=== PATIENT | female | born 1945 | race Caucasian/White ===

== ENCOUNTER 2017-09-04 12:37 | Outpatient (CLI) | payer MEDICARE, OTHER ==
--- NOTE | 2017-10-02 10:22 | MMO ---
BILATERAL SCREENING MAMMOGRAMS: Date: 09/04/17 HISTORY: 71-year-old female patient presented for screening mammography. This patient's mammogram was interpreted with the assistance of computer-aided detection. COMPARISON: 05/05/14 obtained from [place], [place]. FINDINGS: Scattered fibroglandular densities are seen in each breast. There are a few scattered benign-appearin g calcifications in the right breast. There are stable nodular densities in the upper outer aspects o f each breast, probably related to intramammary lymph nodes. No new dominant mass or suspicious group ing of microcalcifications are seen in either breast. No areas of architectural distortion are seen. IMPRESSION: BIRADS 2: Benign Finding(s) Routine annual mammographic screening is recommended. POS: RAMON
== END 2017-09-04 12:38 | disposition home or self-care (01) ==
LOC: SCSMAMMO 12:37
PROVIDERS: ATTEND Family Medicine
DX: Z12.31 Encounter for screening mammogram for malignant neoplasm of breast (principal)
CPT/HCPCS: 77067

== ENCOUNTER 2018-11-01 10:02 | Outpatient (CLI) | payer MEDICARE ==
--- NOTE | 2018-11-01 13:32 | MMO ---
Bilateral MAMMO Bilat Screen DDI. CLINICAL HISTORY: Patient is 73 years old and is seen for screening. The patient has the following family history of breast cancer: paternal aunt, malignant (generic). The patient has no personal history of cancer. VIEWS: The views performed were: bilateral craniocaudal and bilateral mediolateral oblique. FILMS COMPARED: The present examination has been compared to prior imaging studies performed at [facility] on 09/04/2017, and at [facility] on 05/05/2014. This study has been interpreted with the assistance of computer-aided detection. MAMMOGRAM FINDINGS: There are scattered fibroglandular densities. There are no suspicious masses, calcifications or areas of architectural distortion. There are benign appearing calcifications in both breasts. There are no suspicious masses, suspicious calcifications, or new areas of architectural distortion. IMPRESSION: THERE IS NO MAMMOGRAPHIC EVIDENCE OF MALIGNANCY. A ROUTINE FOLLOW-UP MAMMOGRAM IN 1 YEAR IS RECOMMENDED. ACR BI-RADS Category 2 - Benign finding MAMMOGRAPHY NOTE: 1. A negative mammogram report should not delay a biopsy if a dominant of clinically suspicious mass is present. 2. Approximately 10% to 15% of breast cancers are not detected by mammography. 3. Adenosis and dense breasts may obscure an underlying neoplasm.
== END 2018-11-01 10:03 | disposition home or self-care (01) ==
LOC: SCSMAMMO 10:02
PROVIDERS: ATTEND Family Medicine
DX: Z12.31 Encounter for screening mammogram for malignant neoplasm of breast (principal); Z80.3 Family history of malignant neoplasm of breast
CPT/HCPCS: 77067

== ENCOUNTER 2020-05-25 15:04 | Inpatient (IN) | payer MEDICARE ==
[~2020-05-25 15:04] MED LIST: Iopamidol-370 76% 500 ML 1 ML ONE
--- NOTE | 2020-05-25 15:53 | RAD ---
Chest one view HISTORY: Dyspnea. COVID positive. FINDINGS: Cardiac silhouette and pulmonary vasculature are unremarkable. Mediastinum is midline. Subtle ill-defined areas of peripheral groundglass opacity project over each lung base. No evidence of pneumothorax. IMPRESSION : Subtle bilateral lower lobe groundglass infiltrates. Correlate for COVID pneumonitis.
[2020-05-25] MEDS ORDERED: Dexamethasone 4 mg/ml Vial ONE (15:54)
[2020-05-25 15:56] LABS: #Basophils 0.3 thou/uL (0.0-0.2); #Lymphocytes 1.8 thou/uL (1.20-3.40); #Monocytes 0.9 thou/uL (0.11-0.59); #Neutrophils 7.1 thou/uL (1.40-6.50); %Basophils 2.9 % (0.0-1.0); %Eosinophils 0.1 % (0.0-10.0); %Lymphocytes 17.9 % (21.0-51.0); %Monocytes 8.8 % (0.0-10.0); %Neutrophils 70.2 % (42.0-75.0); Hemoglobin 15.9 g/dL (12.0-16.0); Mean Corpuscular HGB CONC 33.4 g/dL (32.0-36.0); Mean Corpuscular Hemoglobin 30.6 pg (27.0-31.0); Mean Corpuscular Volume 91.7 fL (78.0-98.0); Mean Platelet Volume 7.6 fL (7.4-10.4); Platelet Count 315 thou/uL (130-400); RBC Distribution Width 11.8 % (11.5-14.5); Red Blood Cell (RBC) Count 5.19 mill/uL (4.20-5.40); White Blood Cell (WBC) Count 10.2 thou/uL (4.8-10.8)
[2020-05-25 16:16] LABS: ALT (SGPT) 21 U/L (8-55); AST (SGOT) 34 U/L (5-34); Albumin 3.6 g/dL (3.4-4.8); Alkaline Phosphatase 64 U/L (40-110); Anion Gap 15 mmol/L (10-20); BUN (Urea Nitrogen) 13 mg/dL (9.8-20.1); Bilirubin, Total 0.7 mg/dL (0.2-1.2); Calc. Creatinine Clearance 0 mL/min (70-130); Carbon Dioxide 26 mmol/L (23-31); Chloride 96 mmol/L (98-107); Globulin 3.3 g/dL (2.4-3.5); Glucose 160 mg/dL (83-110); Potassium 3.6 mmol/L (3.5-5.1); Protein, Total 6.9 g/dL (6.0-8.3); Sodium 133 mmol/L (136-145)
[2020-05-25] MEDS ORDERED: cefTRIAXone\\ROCEPHIN 2 GM VIAL ONE (16:40)
[2020-05-25] MEDS ORDERED: Azithromycin 500 MG VIAL ONE (16:40)
--- NOTE | 2020-05-25 17:23 | CT ---
CT angiogram chest with IV contrast and 3-D imaging HISTORY: Dyspnea. COVID positive. FINDINGS: There is good contrast opacification of the pulmonary arteries and thoracic aorta with norm al branching of the great vessels at the aortic arch. No pleural fluid or pneumothorax. Nonenlarged, nonspecific lymph nodes throughout the mediastinum. Is nonspecific 0.4 cm subpleural non calcified nodules present within the right upper lobe anteriorly. Scattered throughout each lung are prominent patchy predominantly peripheral areas of groundglass inf iltrate and interstitial thickening. Within the partially visualized upper abdomen, a normal spleen is not seen. A 1.0 cm oval nodule imme diately anterior to the left adrenal gland may represent a nonenlarged lymph node or a splenule. IMPRESSION : No evidence of pulmonary embolus. Bilateral infiltrates of COVID pneumonitis.
[2020-05-25 18:53] LABS: Lactic Acid 1.7 mmol/L (0.5-2.2)
[2020-05-25] MEDS ORDERED: Acetaminophen 325 MG TAB PO PRN (20:11)
[2020-05-25] MEDS ORDERED: Albuterol 200 PUFF (6.7GM INHALER) INH PRN (20:18)
--- NOTE | 2020-05-25 20:19 | PDOC.HHP ---
Hospitalist HPI - History of Present Illness Shortness of breath History of Present Illness: Patient is a 74-year-old female with a history of sarcoidosis diagnosed in 1993 but has not required any treatment. Patient was in her usual state of health until around May 14. At that time she started feeling some generalized malaise, low-grade fevers and fairly severe chills. She had poor appetite. She got tested 5 days ago and was positive. Since that time she is continue to have worsening symptoms. She denies any loss of taste. She does have fairly significant watery diarrhea without abdominal cramping she has a lot of sinus congestion drainage and occasional bloody mucus. She presented today because of worsening shortness of breath. She had a family member bring her a pulse oximeter and her levels were at 85%. She reports she does actually feel better since getting started on the oxygen. ED Course: In the emergency department the patient received 2 L of IV fluids, 10 mg of dexamethasone, 2 g of Rocephin and azithromycin. Hospitalist ROS - Review of Systems Constitutional: reports: fever, chills, malaise Respiratory: reports: cough, shortness of breath, SOB with excertion. denies: hemoptysis Cardiovascular: denies: chest pain, palpitations Gastrointestinal: reports: diarrhea. denies: nausea, vomiting, abdominal pain, constipation All other systems reviewed; all pertinent +/- noted in HPI/Subj - Medication Medications: None Hospitalist History - Past Medical History Source: patient Cardiac: reports: no pertinent history Pulmonary: reports: Other (Diagnosed in 1993 sarcoidosis. 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 Gastrointestinal: reports: no pertinent history Heme/Onc: reports: Other (Left lower extremity DVT which she relates to driving and sedentary work.) Hepatobiliary: reports: no pertinent history Psych: reports: no pertinent history Musculoskeletal: reports: no pertinent history Rheumatologic: reports: Other (Rheumatic fever as a child) Infectious Disease: reports: no pertinent history ENT: reports: no pertinent history Renal/: reports: no pertinent history Endocrine: reports: no pertinent history Dermatology: reports: no pertinent history - Past Surgical History Past Surgical History: reports: Appendectomy, Hysterectomy, Tonsillectomy Other Surgical History: Patient reports that she had a small bowel obstruction and required surgical intervention. During that surgery they also removed her appendix. 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 - Family History Family History: reports: cancer (Brother with cancer, father had cancer.), cardiac disorder (Mother had coronary artery disease with a CABG and CHF. Brother also had coronary bypass) - Social History Smoking Status: Never smoker Alcohol: reports: None Drugs: reports: none Living Situation: Alone - Exam General Appearance: NAD, awake alert General - other findings: Morbidly obese ENT: normocephalic atraumatic Neck: supple, symmetric, no JVD, no thyromegaly, no lymphadenopathy, no carotid bruit Heart: RRR, no murmur, no gallops, no rubs, normal peripheral pulses Respiratory: tachypneic Respiratory - other findings: Fairly severe rales and rhonchi at both bases. Gastrointestinal: soft, non-tender, non-distended, normal bowel sounds, no palpable masses, no hepatomegaly, no splenomegaly, no bruit Extremities: no cyanosis, no clubbing, no edema Skin: normal turgor, no lesions, no rashes Neurological: no focal deficits Musculoskeletal: normal tone, normal strength Psychiatric: normal affect, normal behavior, A&O x 3 Hospitalist Results - Labs Result Diagrams: 05/25/20 15:43 05/25/20 15:43 Lab results: WBC 10.2 thou/uL (4.8-10.8) 05/25/20 15:43 Hgb 15.9 g/dL (12.0-16.0) 05/25/20 15:43 Hct 47.6 % (36.0-47.0) H 05/25/20 15:43 MCV 91.7 fL (78.0-98.0) 05/25/20 15:43 Plt Count 315 thou/uL (130-400) 05/25/20 15:43 Neutrophils % 70.2 % (42.0-75.0) 05/25/20 15:43 Sodium 133 mmol/L (136-145) L 05/25/20 15:43 Potassium 3.6 mmol/L (3.5-5.1) 05/25/20 15:43 Chloride 96 mmol/L (98-107) L 05/25/20 15:43 Carbon Dioxide 26 mmol/L (23-31) 05/25/20 15:43 BUN 13 mg/dL (9.8-20.1) 05/25/20 15:43 Creatinine 0.79 mg/dL (0.6-1.1) 05/25/20 15:43 Glucose 160 mg/dL (83-110) H 05/25/20 15:43 Lactic Acid 1.7 mmol/L (0.5-2.2) 05/25/20 18:16 Calcium 8.0 mg/dL (7.8-10.44) 05/25/20 15:43 Total Bilirubin 0.7 mg/dL (0.2-1.2) 05/25/20 15:43 AST 34 U/L (5-34) 05/25/20 15:43 ALT 21 U/L (8-55) 05/25/20 15:43 Alkaline Phosphatase 64 U/L (40-110) 05/25/20 15:43 Troponin I 0.016 ng/mL (< 0.028) 05/25/20 15:43 Serum Total Protein 6.9 g/dL (6.0-8.3) 05/25/20 15:43 Albumin 3.6 g/dL (3.4-4.8) 05/25/20 15:43 - Radiology Interpretation CT scan - chest Status: image reviewed by me, report reviewed by me (Typical Covid pneumonitis) Hospitalist H&P A/P - Problem (1) Acute respiratory failure with hypoxia Code(s): J96.01 - ACUTE RESPIRATORY FAILURE WITH HYPOXIA Status: Acute (2) Pneumonia due to COVID-19 virus Code(s): U07.1 - COVID-19; J12.82 - PNEUMONIA DUE TO CORONAVIRUS DISEASE 2019 Status: Acute (3) Sarcoidosis Code(s): D86.9 - SARCOIDOSIS, UNSPECIFIED Status: Acute (4) Morbid obesity Code(s): E66.01 - MORBID (SEVERE) OBESITY DUE TO EXCESS CALORIES Status: Acute (5) Lactic acidosis Code(s): E87.2 - ACIDOSIS Status: Acute - Plan Plan: Acute hypoxic respiratory failure secondary to COVID-19 pneumonia: Continue supplemental oxygen to keep O2 sat greater than 92% Bronchodilators as needed Dexamethasone 6 mg daily Vitamin C, vitamin D, zinc. Lovenox subcu twice daily (specially in light of the patient's history of DVT) Patient is within the window of treatment for Remdesivir through tomorrow. We discussed options for Remdesivir however at this time she would prefer not to given the low efficacy at this late stage. She can be reassessed on 05/26/2020. Lactic acidosis: Secondary to above. Appears to be resolving. History of DVT: Certainly patient would be at risk. We will give her Lovenox twice daily. Sarcoidosis: CT chest does not really reveal significant sarcoidosis of the lung. Patient has never been on any treatments. PUD prophylaxis: Given the steroids will cover with PPI.
[2020-05-25 20:23] VITALS: BMI 35.0
[2020-05-25] MEDS: Enoxaparin Sodium 40 MG/0.4 ML SYRINGE SC SCH (21:00)
[2020-05-26 07:15] LABS: Mean Corpuscular HGB CONC 32.7 g/dL (32.0-36.0); Mean Corpuscular Hemoglobin 30.7 pg (27.0-31.0); Mean Corpuscular Volume 93.8 fL (78.0-98.0); Mean Platelet Volume 7.5 fL (7.4-10.4); Platelet Count 353 thou/uL (130-400); RBC Distribution Width 11.8 % (11.5-14.5); Red Blood Cell (RBC) Count 4.89 mill/uL (4.20-5.40); White Blood Cell (WBC) Count 5.5 thou/uL (4.8-10.8)
[2020-05-26 07:22] LABS: Anion Gap 13 mmol/L (10-20); BUN (Urea Nitrogen) 12 mg/dL (9.8-20.1); Calc. Creatinine Clearance 100 mL/min (70-130); Calcium 8.2 mg/dL (7.8-10.44); Carbon Dioxide 24 mmol/L (23-31); Chloride 104 mmol/L (98-107); Glucose 179 mg/dL (83-110); Potassium 3.9 mmol/L (3.5-5.1); Sodium 137 mmol/L (136-145)
[2020-05-26] MEDS: Cholecalciferol 1,000 UNITS (25 MCG) TAB PO SCH (08:15)
[2020-05-26] MEDS: Ascorbic Acid 500 mg Chewable Tablet PO SCH (08:15)
[2020-05-26] MEDS: Enoxaparin Sodium 40 MG/0.4 ML SYRINGE SC SCH ×2 (08:15→20:39)
[2020-05-26] MEDS: Zinc Sulfate 220 MG CAP PO SCH (08:16)
[2020-05-26] MEDS: Dexamethasone 4 mg/ml Vial SLOW IVP SCH (08:18)
[2020-05-26 08:35] LABS: Band 2 % (5-11); Lymphocytes 29 % (21-51); MDiff Complete? YES; Monocytes 8 % (0-10); Neutrophil 59 % (42-75); RBC Morphology Normal; Reactive Lymphocytes 2 % (0-10)
[2020-05-26] MEDS ORDERED: Cepastat Lozenges 1 LOZ PO PRN (09:08)
[2020-05-26] MEDS ORDERED: Loratadine 10 MG TAB PO PRN (09:08)
[2020-05-26] MEDS ORDERED: Calcium Carbonate 500 MG ChewTAB PO PRN (09:08)
[2020-05-26] MEDS ORDERED: Benzonatate 100 MG CAP PO PRN (09:08)
[2020-05-26] MEDS ORDERED: hydrALAZINE 20 MG/ML VIAL SLOW IVP PRN (09:08)
[2020-05-26] MEDS ORDERED: GUAIFENESIN SF SOLN 200 MG/10 ML UDCUP PO PRN (09:08)
[2020-05-26] MEDS ORDERED: HYDROcodone/Acetaminophen 5/325 mg Tablet PO PRN (09:08)
[2020-05-26] MEDS ORDERED: Ondansetron ODT 4 MG TAB PO PRN (09:08)
[2020-05-26] MEDS ORDERED: Senokot S 8.6-50 MG TAB PO PRN (09:08)
[2020-05-26] MEDS ORDERED: Bisacodyl 10 MG SUPP PR PRN (09:08)
[2020-05-26] MEDS ORDERED: Ondansetron PF 4 MG/2 ML Vial IVP PRN (09:08)
[2020-05-26] MEDS ORDERED: Zolpidem Tartrate 5 MG TAB PO PRN (09:08)
[2020-05-26] MEDS ORDERED: Loperamide HCl 2 MG CAP PO PRN (09:08)
[2020-05-26] MEDS ORDERED: Sodium Chloride 0.65% Nasal 44 ML BOT EA NARE PRN (09:08)
--- NOTE | 2020-05-26 11:40 | PDOC.HOSPP ---
- Subjective Encounter Date: 05/26/20 Encounter Time: 07:50 Subjective: Patient seen and examined bedside today, patient is overall doing better, no chest pain or fever, she is on 5 L nasal cannula oxygen - Objective Vital Signs & Weight: Vital Signs (12 hours) Temp Pulse Resp BP Pulse Ox 05/26/20 07:51 92 L 05/26/20 07:11 97.4 F L 55 L 18 132/72 90 L 05/26/20 04:00 97.9 F 75 19 118/62 92 L 05/26/20 00:11 97.4 F L 64 20 104/68 91 L Weight Weight 198 lb Result Diagrams: 05/26/20 06:48 05/26/20 06:48 Radiology Reviewed by me: Yes EKG Reviewed by me: Yes Hospitalist ROS - Review of Systems Constitutional: reports: weakness, malaise Respiratory: reports: shortness of breath, SOB with excertion. denies: cough, dry, hemoptysis, pleuritic pain, sputum, wheezing, other Cardiovascular: denies: chest pain, palpitations, orthopnea, paroxysmal noc. dyspnea, edema, light headedness, other Gastrointestinal: denies: nausea, vomiting, abdominal pain, diarrhea, constipation, melena, hematochezia, other Genitourinary: denies: dysuria, frequency, incontinence, hematuria, retention, other Musculoskeletal: denies: neck pain, shoulder pain, arm pain, back pain, hand pain, leg pain, foot pain, other Skin: denies: rash, lesions, kostas, bruising, other - Medication Medications: Active Medications Generic Name Dose Route Start Last Admin Trade Name Brittany PRN Reason Stop Dose Admin Ascorbic Acid 1,000 mg 05/26/20 09:00 05/26/20 08:15 Ascorbic Acid 500 Mg Chewable Tablet PO 1,000 mg DAILY GALLO Administration Cholecalciferol 1,000 units 05/26/20 09:00 05/26/20 08:15 Cholecalciferol 1,000 Units (25 Mcg) Tab PO 1,000 units DAILY GALLO Administration Dexamethasone 6 mg 05/26/20 09:00 05/26/20 08:18 Dexamethasone 4 Mg/Ml Vial SLOW IVP 6 mg DAILY GALLO Administration Enoxaparin Sodium 40 mg 05/25/20 21:00 05/26/20 08:15 Enoxaparin Sodium 40 Mg/0.4 Ml Syringe SC 40 mg 0900,2100 GALLO Administration Pantoprazole Sodium 40 mg 05/26/20 09:00 05/26/20 08:16 Pantoprazole 40 Mg Tab PO 40 mg DAILY GALLO Administration Zinc Sulfate 220 mg 05/26/20 09:00 05/26/20 08:16 Zinc Sulfate 220 Mg Cap PO 220 mg DAILY GALLO Administration - Exam General Appearance: NAD, awake alert Eye: PERRL, anicteric sclera ENT: normocephalic atraumatic, no oropharyngeal lesions Neck: supple, symmetric, no JVD, no thyromegaly Heart: RRR, no murmur, no gallops, no rubs Respiratory - other findings: Bibasilar coarse breath sound Gastrointestinal: soft, non-tender, non-distended, normal bowel sounds Extremities: no cyanosis, no clubbing, no edema Skin: normal turgor, no lesions, no rashes Neurological: no focal deficits Musculoskeletal: normal tone, normal strength Psychiatric: normal affect, normal behavior, A&O x 3 Hosp A/P (1) Pneumonia due to COVID-19 virus Code(s): U07.1 - COVID-19; J12.82 - PNEUMONIA DUE TO CORONAVIRUS DISEASE 2019 Status: Acute (2) Acute respiratory failure with hypoxia Code(s): J96.01 - ACUTE RESPIRATORY FAILURE WITH HYPOXIA Status: Acute (3) Lactic acidosis Code(s): E87.2 - ACIDOSIS Status: Resolved (4) Morbid obesity Code(s): E66.01 - MORBID (SEVERE) OBESITY DUE TO EXCESS CALORIES Status: Chronic Plan: With BMI 35 (5) Sarcoidosis Code(s): D86.9 - SARCOIDOSIS, UNSPECIFIED Status: Chronic - Plan old records reviewed/req, respiratory therapy, DVT proph w/lovenox Because of late presentation patient is not a candidate for remdesivir therapy, Continue dexamethasone Continue Lovenox for DVT prophylaxis Medication reviewed and continue provide symptomatic and supportive care Wean off oxygen as tolerated Monitor inflammatory markers Patient has mention allergy of prednisone but that gives sometimes hallucination but no real allergy, will monitor for that
--- NOTE | 2020-05-26 16:46 | PQF ---
CLINICAL DOCUMENTATION CLARIFICATION FORM: Dear Dr. LUZ HERRERA Date: 05-26-20 Please exercise your independent, professional judgment in responding to the clarification form. Clinical indicators are provided on the bottom of this form for your review. Please check appropriate box(es) to clarify if the following diagnosis has been ruled in our ruled out: SEVERE SEPSIS [ x ] Ruled in diagnosis [ x ] Continue to treat [ ] Resolved [ ] Ruled out diagnosis [ ] Other diagnosis [ ] Unable to determine In addition, please specify: Present on Admission (POA): [ x ] Yes [ ] No [ ] Unable to determine For continuity of documentation, please document condition throughout progress notes and discharge summary. Thank You. To be completed by CDI/Coding staff for physician review: CLINICAL INDICATORS - SIGNS / SYMPTOMS / LABS / RESULTS AND LOCATION IN MR: ER DX: 05-25-20: SEVERE SEPSIS, PNEUMONIA, COVID, CORONAVIRUS CONFIRMED LACTIC ACID: 05-25-20: 2.5 RISK FACTORS / RESULTS AND LOCATION IN MR: H&P 05-25-20: HX SARCOIDOSIS, A/P: ACUTE RESP FAILURE WITH HYPOXIA, PNEUMONIA D/T COVID-19 VIRUS, MORBID OBESITY, LACTIC ACIDOSIS TREATMENTS / RESULTS AND LOCATION IN MR: ER NOTES 05-25-20: AZITHROMYCIN IV, CEFTRIAXONE IV, NS IVF, DEXAMETHASONE INJ CDS Signature: Marie Cantor Phone #:[phone] Date: 05-26-20 This is a permanent part of the Medical Record [facility]
[2020-05-26] MEDS ORDERED: Melatonin 3 MG TAB PO PRN (23:19)
[2020-05-27] MEDS: Dexamethasone 4 mg/ml Vial SLOW IVP SCH (09:35)
[2020-05-27] MEDS: Enoxaparin Sodium 40 MG/0.4 ML SYRINGE SC SCH ×2 (09:36→20:23)
[2020-05-27] MEDS: Zinc Sulfate 220 MG CAP PO SCH (09:36)
[2020-05-27] MEDS: Ascorbic Acid 500 mg Chewable Tablet PO SCH (09:36)
[2020-05-27] MEDS: Cholecalciferol 1,000 UNITS (25 MCG) TAB PO SCH (09:36)
--- NOTE | 2020-05-27 10:54 | PDOC.HOSPP ---
- Subjective Encounter Date: 05/27/20 Encounter Time: 08:30 Subjective: Patient seen and examined bedside today, patient is overall feeling better, she is on 5 L nasal cannula oxygen, - Objective Vital Signs & Weight: Vital Signs (12 hours) Temp Pulse Resp BP Pulse Ox 05/27/20 09:00 65 05/27/20 07:33 96.1 F L 49 L 18 104/65 91 L Weight Weight 198 lb I&O: 05/26/20 05/27/20 05/28/20 06:59 06:59 06:59 Intake Total 800 Balance 800 Result Diagrams: 05/26/20 06:48 05/26/20 06:48 Hospitalist ROS - Review of Systems Constitutional: reports: weakness Eyes: denies: pain, vision change, conjunctivae inflammation, eyelid inflammation, redness, other ENT: denies: ear pain, ear discharge, nose pain, nose discharge, nose congestion, mouth pain, mouth swelling, throat pain, throat swelling, other Respiratory: reports: shortness of breath, SOB with excertion. denies: cough, dry, hemoptysis, pleuritic pain, sputum, wheezing, other Cardiovascular: denies: chest pain, palpitations, orthopnea, paroxysmal noc. dyspnea, edema, light headedness, other Gastrointestinal: denies: nausea, vomiting, abdominal pain, diarrhea, constipation, melena, hematochezia, other Genitourinary: denies: dysuria, frequency, incontinence, hematuria, retention, other Musculoskeletal: denies: neck pain, shoulder pain, arm pain, back pain, hand pain, leg pain, foot pain, other Skin: denies: rash, lesions, kostas, bruising, other - Medication Medications: Active Medications Generic Name Dose Route Start Last Admin Trade Name Miahq PRN Reason Stop Dose Admin Ascorbic Acid 1,000 mg 05/26/20 09:00 05/27/20 09:36 Ascorbic Acid 500 Mg Chewable Tablet PO 1,000 mg DAILY GALLO Administration Cholecalciferol 1,000 units 05/26/20 09:00 05/27/20 09:36 Cholecalciferol 1,000 Units (25 Mcg) Tab PO 1,000 units DAILY GALLO Administration Dexamethasone 6 mg 05/26/20 09:00 05/27/20 09:35 Dexamethasone 4 Mg/Ml Vial SLOW IVP 6 mg DAILY GALLO Administration Enoxaparin Sodium 40 mg 05/25/20 21:00 05/27/20 09:36 Enoxaparin Sodium 40 Mg/0.4 Ml Syringe SC 40 mg 0900,2100 GALLO Administration Melatonin 3 mg 05/26/20 23:19 05/26/20 23:23 Melatonin 3 Mg Tab PO 3 mg HSPRN PRN Administration Insomnia Pantoprazole Sodium 40 mg 05/26/20 09:00 05/27/20 09:36 Pantoprazole 40 Mg Tab PO 40 mg DAILY GALLO Administration Zinc Sulfate 220 mg 05/26/20 09:00 05/27/20 09:36 Zinc Sulfate 220 Mg Cap PO 220 mg DAILY GALLO Administration - Exam General Appearance: NAD, awake alert Eye: PERRL, anicteric sclera ENT: normocephalic atraumatic, no oropharyngeal lesions Neck: supple, symmetric, no JVD, no thyromegaly Heart: RRR, no murmur, no gallops, no rubs Respiratory: no wheezes, no ronchi, no tachypnea Respiratory - other findings: Bibasilar coarse breath sound, Gastrointestinal: soft, non-tender, non-distended, normal bowel sounds Extremities: no cyanosis, no clubbing, no edema Skin: normal turgor, no lesions Neurological: no focal deficits Musculoskeletal: normal tone, normal strength Psychiatric: normal affect, normal behavior Hosp A/P (1) Pneumonia due to COVID-19 virus Code(s): U07.1 - COVID-19; J12.82 - PNEUMONIA DUE TO CORONAVIRUS DISEASE 2019 Status: Acute (2) Acute respiratory failure with hypoxia Code(s): J96.01 - ACUTE RESPIRATORY FAILURE WITH HYPOXIA Status: Acute (3) Lactic acidosis Code(s): E87.2 - ACIDOSIS Status: Resolved (4) Morbid obesity Code(s): E66.01 - MORBID (SEVERE) OBESITY DUE TO EXCESS CALORIES Status: Chronic (5) Sarcoidosis Code(s): D86.9 - SARCOIDOSIS, UNSPECIFIED Status: Chronic - Plan old records reviewed/req, respiratory therapy, DVT proph w/lovenox Continue dexamethasone Continue vitamin supplementation Continue dexamethasone Today we will try to reduce oxygen Tomorrow we will decide if she still needs oxygen or not, if she needs oxygen by tomorrow, then will try to arrange oxygen and let her go home tomorrow
[2020-05-28] MEDS: Cholecalciferol 1,000 UNITS (25 MCG) TAB PO SCH (08:11)
[2020-05-28] MEDS: Enoxaparin Sodium 40 MG/0.4 ML SYRINGE SC SCH ×2 (08:11→19:34)
[2020-05-28] MEDS: Ascorbic Acid 500 mg Chewable Tablet PO SCH (08:11)
[2020-05-28] MEDS: Zinc Sulfate 220 MG CAP PO SCH (08:11)
[2020-05-28] MEDS: Dexamethasone 4 MG TAB PO SCH (08:12)
--- NOTE | 2020-05-28 10:52 | PDOC.HOSPP ---
- Subjective Encounter Date: 05/28/20 Encounter Time: 08:30 Subjective: Patient seen and examined. No overnight events, Patient's oxygen level drops with exertion even with oxygen - Objective Vital Signs & Weight: Vital Signs (12 hours) Temp Pulse Resp BP BP Pulse Ox 05/28/20 07:53 97.5 F L 51 L 20 123/78 91 L 05/28/20 05:00 97.4 F L 57 L 18 137/76 92 L 05/28/20 04:33 97.4 F L 57 L 18 137/76 92 L 05/28/20 01:00 97.4 F L 60 18 129/72 93 L 05/28/20 00:46 97.4 F L 60 18 129/72 93 L Weight Weight 198 lb I&O: 05/27/20 05/28/20 05/29/20 06:59 06:59 06:59 Intake Total 800 800 Balance 800 800 Result Diagrams: 05/26/20 06:48 05/26/20 06:48 Hospitalist ROS - Review of Systems Constitutional: reports: weakness Eyes: denies: pain, vision change, conjunctivae inflammation, eyelid inflammation, redness, other ENT: denies: ear pain, ear discharge, nose pain, nose discharge, nose congestion, mouth pain, mouth swelling, throat pain, throat swelling, other Respiratory: reports: cough, shortness of breath, SOB with excertion. denies: dry, hemoptysis, pleuritic pain, sputum, wheezing, other Cardiovascular: denies: chest pain, palpitations, orthopnea, paroxysmal noc. dyspnea, edema, light headedness, other Gastrointestinal: denies: nausea, vomiting, abdominal pain, diarrhea, constipation, melena, hematochezia, other Genitourinary: denies: dysuria, frequency, incontinence, hematuria, retention, other Musculoskeletal: denies: neck pain, shoulder pain, arm pain, back pain, hand pain, leg pain, foot pain, other - Medication Medications: Active Medications Generic Name Dose Route Start Last Admin Trade Name Freq PRN Reason Stop Dose Admin Ascorbic Acid 1,000 mg 05/26/20 09:00 05/28/20 08:11 Ascorbic Acid 500 Mg Chewable Tablet PO 1,000 mg DAILY GALLO Administration Cholecalciferol 1,000 units 05/26/20 09:00 05/28/20 08:11 Cholecalciferol 1,000 Units (25 Mcg) Tab PO 1,000 units DAILY GALLO Administration Dexamethasone 6 mg 05/28/20 08:00 05/28/20 08:12 Dexamethasone 4 Mg Tab PO 6 mg QAM-WM GALLO Administration Enoxaparin Sodium 40 mg 05/25/20 21:00 05/28/20 08:11 Enoxaparin Sodium 40 Mg/0.4 Ml Syringe SC 40 mg 0900,2100 GALLO Administration Melatonin 3 mg 05/26/20 23:19 05/26/20 23:23 Melatonin 3 Mg Tab PO 3 mg HSPRN PRN Administration Insomnia Pantoprazole Sodium 40 mg 05/26/20 09:00 05/28/20 08:11 Pantoprazole 40 Mg Tab PO 40 mg DAILY GALLO Administration Zinc Sulfate 220 mg 05/26/20 09:00 05/28/20 08:11 Zinc Sulfate 220 Mg Cap PO 220 mg DAILY GALLO Administration - Exam General Appearance: NAD, awake alert Eye: PERRL, anicteric sclera ENT: normocephalic atraumatic, no oropharyngeal lesions Neck: supple, symmetric, no JVD, no thyromegaly Heart: RRR, no murmur, no gallops, no rubs Respiratory: no wheezes, no rales, no ronchi Respiratory - other findings: Bilateral coarse breath sound at base Gastrointestinal: soft, non-tender, non-distended, normal bowel sounds Extremities: no cyanosis, no clubbing, no edema Skin: normal turgor, no lesions, no rashes Neurological: no focal deficits Musculoskeletal: normal tone, normal strength Psychiatric: normal affect, normal behavior, A&O x 3 Hosp A/P (1) Pneumonia due to COVID-19 virus Code(s): U07.1 - COVID-19; J12.82 - PNEUMONIA DUE TO CORONAVIRUS DISEASE 2019 Status: Acute (2) Acute respiratory failure with hypoxia Code(s): J96.01 - ACUTE RESPIRATORY FAILURE WITH HYPOXIA Status: Acute (3) Lactic acidosis Code(s): E87.2 - ACIDOSIS Status: Resolved (4) Morbid obesity Code(s): E66.01 - MORBID (SEVERE) OBESITY DUE TO EXCESS CALORIES Status: Chronic (5) Sarcoidosis Code(s): D86.9 - SARCOIDOSIS, UNSPECIFIED Status: Chronic - Plan old records reviewed/req, DVT proph w/lovenox Today we did oxygen challenge test during her oxygen saturation was low without oxygen and with a 3 L oxygen her oxygen saturation dropping below 85% after exertion, patient did not meet criteria for discharge even with oxygen, will continue to monitor while in hospital, Today I have changed her dexamethasone to p.o., continue vitamin supplementation, symptomatic treatment, will reevaluate her tomorrow, medications reviewed and continue provide symptomatic and supportive care
[2020-05-29] MEDS: Ascorbic Acid 500 mg Chewable Tablet PO SCH (08:28)
[2020-05-29] MEDS: Cholecalciferol 1,000 UNITS (25 MCG) TAB PO SCH (08:28)
[2020-05-29] MEDS: Zinc Sulfate 220 MG CAP PO SCH (08:28)
[2020-05-29] MEDS: Dexamethasone 4 MG TAB PO SCH (08:28)
[2020-05-29] MEDS: Enoxaparin Sodium 40 MG/0.4 ML SYRINGE SC SCH ×2 (08:29→20:19)
--- NOTE | 2020-05-29 10:15 | PDOC.HOSPP ---
- Subjective Encounter Date: 05/29/20 Encounter Time: 08:30 Subjective: Patient is still on 5 L nasal cannula oxygen and her saturation runs 90%, patient is subjectively feels okay, with exertion her oxygen saturation decreases, she has oxygen arrangement completed but her requirement is more than expected - Objective Vital Signs & Weight: Vital Signs (12 hours) Temp Pulse Resp BP Pulse Ox 05/29/20 08:00 97.7 F 89 20 118/71 90 L 05/29/20 04:15 58 L 20 90 L 05/28/20 23:36 20 92 L Weight Weight 198 lb I&O: 05/28/20 05/29/20 05/30/20 06:59 06:59 06:59 Intake Total 800 Balance 800 Result Diagrams: 05/26/20 06:48 05/26/20 06:48 Hospitalist ROS - Review of Systems Constitutional: denies: fever, chills, sweats, weakness, malaise, other ENT: denies: ear pain, ear discharge, nose pain, nose discharge, nose congestion, mouth pain, mouth swelling, throat pain, throat swelling, other Respiratory: reports: shortness of breath, SOB with excertion. denies: cough, dry, hemoptysis, pleuritic pain, sputum, wheezing, other Cardiovascular: denies: chest pain, palpitations, orthopnea, paroxysmal noc. dyspnea, edema, light headedness, other Gastrointestinal: denies: nausea, vomiting, abdominal pain, diarrhea, constipation, melena, hematochezia, other Genitourinary: denies: dysuria, frequency, incontinence, hematuria, retention, other Musculoskeletal: denies: neck pain, shoulder pain, arm pain, back pain, hand pain, leg pain, foot pain, other - Medication Medications: Active Medications Generic Name Dose Route Start Last Admin Trade Name Freq PRN Reason Stop Dose Admin Ascorbic Acid 1,000 mg 05/26/20 09:00 05/29/20 08:28 Ascorbic Acid 500 Mg Chewable Tablet PO 1,000 mg DAILY GALLO Administration Cholecalciferol 1,000 units 05/26/20 09:00 05/29/20 08:28 Cholecalciferol 1,000 Units (25 Mcg) Tab PO 1,000 units DAILY GALLO Administration Dexamethasone 6 mg 05/28/20 08:00 05/29/20 08:28 Dexamethasone 4 Mg Tab PO 6 mg QAM-WM GALLO Administration Enoxaparin Sodium 40 mg 05/25/20 21:00 05/29/20 08:29 Enoxaparin Sodium 40 Mg/0.4 Ml Syringe SC 40 mg 0900,2100 GALLO Administration Melatonin 3 mg 05/26/20 23:19 05/26/20 23:23 Melatonin 3 Mg Tab PO 3 mg HSPRN PRN Administration Insomnia Pantoprazole Sodium 40 mg 05/26/20 09:00 05/29/20 08:28 Pantoprazole 40 Mg Tab PO 40 mg DAILY GALLO Administration Zinc Sulfate 220 mg 05/26/20 09:00 05/29/20 08:28 Zinc Sulfate 220 Mg Cap PO 220 mg DAILY GALLO Administration - Exam General Appearance: NAD, awake alert Eye: PERRL, anicteric sclera ENT: normocephalic atraumatic, no oropharyngeal lesions Neck: supple, symmetric, no JVD, no thyromegaly Heart: RRR, no murmur, no gallops, no rubs Respiratory: no wheezes, no ronchi, no tachypnea Respiratory - other findings: Coarse breath sound but no rales Gastrointestinal: soft, non-tender, non-distended, normal bowel sounds Gastrointestinal - other findings: Obesity noted Extremities: no cyanosis, no clubbing, no edema Skin: normal turgor, no lesions Neurological: no focal deficits Musculoskeletal: normal tone, normal strength, no muscle wasting Psychiatric: normal affect, normal behavior Hosp A/P (1) Pneumonia due to COVID-19 virus Code(s): U07.1 - COVID-19; J12.82 - PNEUMONIA DUE TO CORONAVIRUS DISEASE 2019 Status: Acute (2) Acute respiratory failure with hypoxia Code(s): J96.01 - ACUTE RESPIRATORY FAILURE WITH HYPOXIA Status: Acute (3) Lactic acidosis Code(s): E87.2 - ACIDOSIS Status: Resolved (4) Morbid obesity Code(s): E66.01 - MORBID (SEVERE) OBESITY DUE TO EXCESS CALORIES Status: Chronic (5) Sarcoidosis Code(s): D86.9 - SARCOIDOSIS, UNSPECIFIED Status: Chronic - Plan old records reviewed/req, respiratory therapy, DVT proph w/lovenox Every day we will do oxygen challenge test, as long as patient is able to maintain her oxygen saturation with the below 3 L nasal cannula oxygen and after exertion her oxygen saturation remains above 90% then patient would be able to go home, unfortunately so far patient has not achieved this level yet to consi jamal discharge. Continue dexamethasone, continue vitamin supplementation, continue medication as prescribed, symptomatic treatment.
--- NOTE | 2020-05-29 14:01 | EKG ---
Test Reason : SOB Blood Pressure : / mmHG Vent. Rate : 084 BPM Atrial Rate : 084 BPM P-R Int : 140 ms QRS Dur : 076 ms QT Int : 338 ms P-R-T Axes : 078 018 224 degrees QTc Int : 399 ms Normal sinus rhythm Normal ECG Baseline Artifact Present Confirmed by SHA ONEILL DO ([id number]), film or videotape editor DEEP SHAHID ([id number]) on 05/29/2020 2:01:28 PM Referred By: MAI Confirmed By:SHA ONEILL DO
[2020-05-30] MEDS: Dexamethasone 4 MG TAB PO SCH (08:36)
[2020-05-30] MEDS: Ascorbic Acid 500 mg Chewable Tablet PO SCH (08:36)
[2020-05-30] MEDS: Zinc Sulfate 220 MG CAP PO SCH (08:36)
[2020-05-30] MEDS: Cholecalciferol 1,000 UNITS (25 MCG) TAB PO SCH (08:36)
[2020-05-30] MEDS: Enoxaparin Sodium 40 MG/0.4 ML SYRINGE SC SCH ×2 (08:37→21:05)
--- NOTE | 2020-05-30 10:58 | PDOC.HOSPP ---
- Subjective Encounter Date: 05/30/20 Encounter Time: 08:30 Subjective: Patient seen and examined. No new complaints. No overnight events Patient currently on 4 L nasal cannula oxygen, with that she is only able to maintain her oxygen saturation at rest, when she walks in her room for few minutes her oxygen saturation drops below 88% even with oxygen, - Objective Vital Signs & Weight: Vital Signs (12 hours) Temp Pulse Resp BP Pulse Ox 05/30/20 08:00 97.7 F 64 22 H 127/64 91 L 05/30/20 04:00 68 18 93 L Weight Weight 198 lb Result Diagrams: 05/26/20 06:48 05/26/20 06:48 Hospitalist ROS - Review of Systems Constitutional: reports: weakness. denies: fever, chills, sweats, malaise, other Respiratory: reports: shortness of breath, SOB with excertion. denies: cough, dry, hemoptysis, pleuritic pain, sputum, wheezing, other Cardiovascular: denies: chest pain, palpitations, orthopnea, paroxysmal noc. dyspnea, edema, light headedness, other Gastrointestinal: denies: nausea, vomiting, abdominal pain, diarrhea, constipation, melena, hematochezia, other Genitourinary: denies: dysuria, frequency, incontinence, hematuria, retention, other Musculoskeletal: denies: neck pain, shoulder pain, arm pain, back pain, hand pain, leg pain, foot pain, other - Medication Medications: Active Medications Generic Name Dose Route Start Last Admin Trade Name Freq PRN Reason Stop Dose Admin Ascorbic Acid 1,000 mg 05/26/20 09:00 05/30/20 08:36 Ascorbic Acid 500 Mg Chewable Tablet PO 1,000 mg DAILY GALLO Administration Cholecalciferol 1,000 units 05/26/20 09:00 05/30/20 08:36 Cholecalciferol 1,000 Units (25 Mcg) Tab PO 1,000 units DAILY GALLO Administration Dexamethasone 6 mg 05/28/20 08:00 05/30/20 08:36 Dexamethasone 4 Mg Tab PO 6 mg QAM-WM GALLO Administration Enoxaparin Sodium 40 mg 05/25/20 21:00 05/30/20 08:37 Enoxaparin Sodium 40 Mg/0.4 Ml Syringe SC 40 mg 0900,2100 GALLO Administration Melatonin 3 mg 05/26/20 23:19 05/26/20 23:23 Melatonin 3 Mg Tab PO 3 mg HSPRN PRN Administration Insomnia Pantoprazole Sodium 40 mg 05/26/20 09:00 05/30/20 08:37 Pantoprazole 40 Mg Tab PO 40 mg DAILY GALLO Administration Zinc Sulfate 220 mg 05/26/20 09:00 05/30/20 08:36 Zinc Sulfate 220 Mg Cap PO 220 mg DAILY GALLO Administration - Exam General Appearance: NAD, awake alert Eye: PERRL, anicteric sclera ENT: normocephalic atraumatic, no oropharyngeal lesions Neck: supple, symmetric, no JVD, no thyromegaly Heart: RRR, no murmur, no gallops, no rubs Respiratory - other findings: Bilateral reduced air entry, coarse breath sound Gastrointestinal: soft, non-tender, non-distended, normal bowel sounds Extremities: no cyanosis, no clubbing, no edema Skin: normal turgor, no lesions Neurological: no focal deficits Musculoskeletal: normal tone, normal strength Psychiatric: normal affect, normal behavior Hosp A/P (1) Pneumonia due to COVID-19 virus Code(s): U07.1 - COVID-19; J12.82 - PNEUMONIA DUE TO CORONAVIRUS DISEASE 2019 Status: Acute (2) Acute respiratory failure with hypoxia Code(s): J96.01 - ACUTE RESPIRATORY FAILURE WITH HYPOXIA Status: Acute (3) Lactic acidosis Code(s): E87.2 - ACIDOSIS Status: Resolved (4) Morbid obesity Code(s): E66.01 - MORBID (SEVERE) OBESITY DUE TO EXCESS CALORIES Status: Chronic (5) Sarcoidosis Code(s): D86.9 - SARCOIDOSIS, UNSPECIFIED Status: Chronic - Plan old records reviewed/req, continue antibiotics, PT/OT, DVT proph w/lovenox Patient still does not meet criteria for discharge with home oxygen, still requiring more than expected oxygen, will get chest x-ray today, will repeat labs tomorrow, will continue to wean off oxygen as tolerated, as long as patient able to maintain her oxygen saturation with a 3 L and remains above 90% with exertion then will consider discharge, medication reviewed and continue provide symptomatic and supportive care,
--- NOTE | 2020-05-30 15:29 | RAD ---
XR Chest 1 View History: Hypoxemia Comparison: Radiograph 5 days prior Findings: Abnormal peripheral and patchy perihilar airspace opacities. No pneumothorax. No effusion. No acute osseous abnormality. Impression: Moderate commonly reported imaging findings of COVID-19 pneumonia.
[2020-05-31 06:43] LABS: Hemoglobin 13.9 g/dL (12.0-16.0); Mean Corpuscular HGB CONC 33.1 g/dL (32.0-36.0); Mean Corpuscular Hemoglobin 30.2 pg (27.0-31.0); Mean Corpuscular Volume 91.3 fL (78.0-98.0); Mean Platelet Volume 8.2 fL (7.4-10.4); Platelet Count 534 thou/uL (130-400); RBC Distribution Width 11.7 % (11.5-14.5); Red Blood Cell (RBC) Count 4.61 mill/uL (4.20-5.40); White Blood Cell (WBC) Count 17.5 thou/uL (4.8-10.8)
[2020-05-31 06:59] LABS: ALT (SGPT) 32 U/L (8-55); AST (SGOT) 27 U/L (5-34); Albumin 3.1 g/dL (3.4-4.8); Alkaline Phosphatase 62 U/L (40-110); Anion Gap 14 mmol/L (10-20); BUN (Urea Nitrogen) 19 mg/dL (9.8-20.1); Bilirubin, Total 0.6 mg/dL (0.2-1.2); Calc. Creatinine Clearance 101 mL/min (70-130); Calcium 8.1 mg/dL (7.8-10.44); Carbon Dioxide 23 mmol/L (23-31); Chloride 102 mmol/L (98-107); Globulin 3.1 g/dL (2.4-3.5); Glucose 140 mg/dL (83-110); Potassium 4.4 mmol/L (3.5-5.1); Protein, Total 6.2 g/dL (6.0-8.3); Sodium 135 mmol/L (136-145)
[2020-05-31] MEDS: Cholecalciferol 1,000 UNITS (25 MCG) TAB PO SCH (07:55)
[2020-05-31] MEDS: Dexamethasone 4 MG TAB PO SCH (07:55)
[2020-05-31] MEDS: Enoxaparin Sodium 40 MG/0.4 ML SYRINGE SC SCH (07:55)
[2020-05-31] MEDS: Ascorbic Acid 500 mg Chewable Tablet PO SCH (07:55)
[2020-05-31] MEDS: Zinc Sulfate 220 MG CAP PO SCH (09:50)
[2020-05-31 09:57] LABS: Band 7 % (5-11); Lymphocytes 7 % (21-51); MDiff Complete? YES; Monocytes 2 % (0-10); Neutrophil 65 % (42-75); Platelet Morphology Comment Appears Increased; RBC Morphology Normal; Reactive Lymphocytes 19 % (0-10)
--- NOTE | 2020-05-31 11:30 | PDOC.DS.DS ---
Provider - Provider Date of Admission: 05/25/20 16:45 Admitting Provider: Gavin Meadows MD Course - Hospital Course Hospital Course: History of Present Illness: Patient is a 74-year-old female with a history of sarcoidosis diagnosed in 1993 but has not required any treatment. Patient was in her usual state of health until around May 14. At that time she started feeling some generalized malaise, low-grade fevers and fairly severe chills. She had poor appetite. She got tested 5 days ago and was positive. Since that time she is continue to have worsening symptoms. She denies any loss of taste. She does have fairly significant watery diarrhea without abdominal cramping she has a lot of sinus congestion drainage and occasional bloody mucus. She presented today because of worsening shortness of breath. She had a family member bring her a pulse oximeter and her levels were at 85%. She reports she does actually feel better since getting started on the oxygen. ED Course: In the emergency department the patient received 2 L of IV fluids, 10 mg of dexamethasone, 2 g of Rocephin and azithromycin. After admission patient was treated with oxygen, she was given dexamethasone, she was requiring oxygen so with help of human services case manager we arranged oxygen, she was also given convalescent plasma, patient did not qualify for remdesivir therapy while in hospital. While in hospital patient showed stability in her oxygen saturation and vitals, she was asymptomatic, today we decided to let her go home with home oxygen. All new medication prescription sent to her pharmacy. Resuscitation Status: 05/25/20 20:11 Resuscitation Status Routine Resuscitation Status: FULL: Full Resuscitation - Labs Lab Results: 05/31/20 05:55 05/31/20 05:55 Abnormal Lab Results - Last 48 hrs 05/30/20 12:19: C-Reactive Protein 5.24 H 05/30/20 12:19: Ferritin 793.70 H 05/30/20 12:19: D-Dimer 1.11 H 05/31/20 05:55: Sodium 135 L, Albumin 3.1 L, Albumin/Globulin Ratio 1.0 L 05/31/20 05:55: WBC 17.5 H, Plt Count 534 H, Lymphocytes % (Manual) 7 L, Reactive Lymphs % 19 H, Plt Morphology Comment Appears Increased H Microbiology - Entire Visit 05/25/20 15:43 Venous blood - Right Hand Blood Culture - Final NO GROWTH IN 5 DAYS 05/25/20 15:43 Venous blood - Left Arm Blood Culture - Final NO GROWTH IN 5 DAYS - Physical Exam Vitals: Vital Signs (12 hours) Temp Pulse Resp BP Pulse Ox Pulse Ox Pulse Ox 05/31/20 09:10 92 L 90 L 05/31/20 08:15 98 05/31/20 08:00 97.6 F 60 20 119/74 98 05/31/20 03:42 63 18 94 L Pulse Ox Pulse Ox 05/31/20 09:10 84 L 89 L 05/31/20 08:15 05/31/20 08:00 05/31/20 03:42 Weight Weight 198 lb Physical Exam: The patient was seen and examined on the day of discharge. General patient is currently alert and awake no acute distress Head normocephalic atraumatic Neck supple no JVD no meningeal signs of irritation Lungs grossly clear to auscultation without any obvious rhonchi or rales Cardiac S1-S2 regular, no murmur no gallop no rub Abdomen soft, bowel sound present, nontender nondistended no organomegaly no mass Extremity no edema good distal pulsation Skin no skin rash Hematological system no lymphadenopathy Neurologic nonfocal examination Problem - Problem (1) Pneumonia due to COVID-19 virus Code(s): U07.1 - COVID-19; J12.82 - PNEUMONIA DUE TO CORONAVIRUS DISEASE 2019 Status: Acute (2) Acute respiratory failure with hypoxia Code(s): J96.01 - ACUTE RESPIRATORY FAILURE WITH HYPOXIA Status: Acute (3) Lactic acidosis Code(s): E87.2 - ACIDOSIS Status: Resolved (4) Morbid obesity Code(s): E66.01 - MORBID (SEVERE) OBESITY DUE TO EXCESS CALORIES Status: Chronic (5) Sarcoidosis Code(s): D86.9 - SARCOIDOSIS, UNSPECIFIED Status: Chronic Plan - Discharge Medications Prescriptions: Albuterol Sulfate [Proventil Hfa] 2 puff INH Q6HR PRN #1 inhaler PRN Reason: Wheezing Doxycycline Hyclate 100 mg PO Q12HR #14 tablet Dexamethasone [Decadron] 6 mg PO QAM-WM #6 tab Pantoprazole [Protonix] 40 mg PO DAILY #14 tab Benzonatate [Tessalon] 100 mg PO Q6H PRN #30 cap PRN Reason: Cough Ascorbic Acid [Vitamin C] 1,000 mg PO DAILY #30 tab Cholecalciferol [Vitamin D3] 1,000 units PO DAILY #14 tab Zinc Sulfate 220 mg PO DAILY #14 cap Home Medications: Medication Instructions Recorded Confirmed Type Albuterol Sulfate [Proventil Hfa] 2 puff INH Q6HR PRN #1 inhaler 05/28/20 Rx Ascorbic Acid [Vitamin C] 1,000 mg PO DAILY #30 tab 05/28/20 Rx Benzonatate [Tessalon] 100 mg PO Q6H PRN #30 cap 05/28/20 Rx Cholecalciferol [Vitamin D3] 1,000 units PO DAILY #14 tab 05/28/20 Rx Dexamethasone [Decadron] 6 mg PO QAM-WM #6 tab 05/28/20 Rx Pantoprazole [Protonix] 40 mg PO DAILY #14 tab 05/28/20 Rx Zinc Sulfate 220 mg PO DAILY #14 cap 05/28/20 Rx Doxycycline Hyclate 100 mg PO Q12HR #14 tablet 05/31/20 Rx Allergies: Penicillins Allergy (Verified 05/26/20 08:17) hallucinations prednisone Allergy (Verified 05/27/20 09:32) hallucinations - Discharge Instructions Activity:: Activity as Tolerated Nourishment:: Heart Healthy Diet Therapies:: Not Applicable Equipment/Supplies:: Oxygen IV Therapy:: Not Applicable - Follow up Plan Disposition: HOME Quality - Care Measures CORE MEASURES:: N/A
--- NOTE | 2020-05-31 12:29 | PDOC.HOSPP ---
- Subjective Encounter Date: 05/31/20 Encounter Time: 11:50 Subjective: Patient seen and examined. No new complaints. No overnight events - Objective Vital Signs & Weight: Vital Signs (12 hours) Temp Pulse Resp BP Pulse Ox Pulse Ox Pulse Ox 05/31/20 09:10 92 L 90 L 05/31/20 08:15 98 05/31/20 08:00 97.6 F 60 20 119/74 98 05/31/20 03:42 63 18 94 L Pulse Ox Pulse Ox 05/31/20 09:10 84 L 89 L 05/31/20 08:15 05/31/20 08:00 05/31/20 03:42 Weight Weight 198 lb I&O: 05/30/20 05/31/20 06/01/20 06:59 06:59 06:59 Intake Total 240 Balance 240 Result Diagrams: 05/31/20 05:55 05/31/20 05:55 Hospitalist ROS - Review of Systems ENT: denies: ear pain, ear discharge, nose pain, nose discharge, nose congestion, mouth pain, mouth swelling, throat pain, throat swelling, other Respiratory: denies: cough, dry, shortness of breath, hemoptysis, SOB with excertion, pleuritic pain, sputum, wheezing, other Cardiovascular: denies: chest pain, palpitations, orthopnea, paroxysmal noc. dyspnea, edema, light headedness, other Gastrointestinal: denies: nausea, vomiting, abdominal pain, diarrhea, constipation, melena, hematochezia, other Genitourinary: denies: dysuria, frequency, incontinence, hematuria, retention, other Musculoskeletal: denies: neck pain, shoulder pain, arm pain, back pain, hand pain, leg pain, foot pain, other - Medication Medications: Active Medications Generic Name Dose Route Start Last Admin Trade Name Freq PRN Reason Stop Dose Admin Ascorbic Acid 1,000 mg 05/26/20 09:00 05/31/20 07:55 Ascorbic Acid 500 Mg Chewable Tablet PO 1,000 mg DAILY GALLO Administration Cholecalciferol 1,000 units 05/26/20 09:00 05/31/20 07:55 Cholecalciferol 1,000 Units (25 Mcg) Tab PO 1,000 units DAILY GALLO Administration Dexamethasone 6 mg 05/28/20 08:00 05/31/20 07:55 Dexamethasone 4 Mg Tab PO 6 mg QAM-WM GALLO Administration Enoxaparin Sodium 40 mg 05/25/20 21:00 05/31/20 07:55 Enoxaparin Sodium 40 Mg/0.4 Ml Syringe SC 40 mg 0900,2100 GALLO Administration Melatonin 3 mg 05/26/20 23:19 05/26/20 23:23 Melatonin 3 Mg Tab PO 3 mg HSPRN PRN Administration Insomnia Pantoprazole Sodium 40 mg 05/26/20 09:00 05/31/20 07:55 Pantoprazole 40 Mg Tab PO 40 mg DAILY GALLO Administration Zinc Sulfate 220 mg 05/26/20 09:00 05/31/20 09:50 Zinc Sulfate 220 Mg Cap PO Not Given DAILY GALLO - Exam General Appearance: NAD, awake alert Eye: PERRL, anicteric sclera ENT: normocephalic atraumatic, no oropharyngeal lesions Neck: supple, symmetric, no JVD, no carotid bruit Heart: RRR, no murmur, no gallops, no rubs Respiratory: no wheezes, no rales, no ronchi Gastrointestinal: soft, non-tender, non-distended, normal bowel sounds Extremities: no cyanosis, no clubbing Skin: normal turgor, no lesions Neurological: no focal deficits Musculoskeletal: normal tone, normal strength Psychiatric: normal affect, normal behavior Hosp A/P (1) Pneumonia due to COVID-19 virus Code(s): U07.1 - COVID-19; J12.82 - PNEUMONIA DUE TO CORONAVIRUS DISEASE 2019 Status: Acute (2) Acute respiratory failure with hypoxia Code(s): J96.01 - ACUTE RESPIRATORY FAILURE WITH HYPOXIA Status: Acute (3) Lactic acidosis Code(s): E87.2 - ACIDOSIS Status: Resolved (4) Morbid obesity Code(s): E66.01 - MORBID (SEVERE) OBESITY DUE TO EXCESS CALORIES Status: Chronic (5) Sarcoidosis Code(s): D86.9 - SARCOIDOSIS, UNSPECIFIED Status: Chronic - Plan old records reviewed/req Patient is medically stable for discharge, she is maintaining oxygen now with the 3 L, add doxycycline on discharge See my discharge summary
[2020-05-31 12:45] VITALS: BP 129/73; TEMP 97.2
== END 2020-05-31 12:33 | disposition home or self-care (01) | DRG 871 ==
LOC: ERS 15:04 → T4-A 16:45
PROVIDERS: ADMIT Internal Medicine; ATTEND Internal Medicine
PROC: 8E0ZXY6 Isolation (ICD-10-PCS; principal; 2020-05-25)
PROC: XW13325 Transfusion of Convalescent Plasma (Nonautologous) into Peripheral Vein, Percutaneous Approach, New Technology Group 5 (ICD-10-PCS; 2020-05-30)
DX: A41.89 Other specified sepsis (principal); U07.1 COVID-19; J12.82 Pneumonia due to coronavirus disease 2019; J96.01 Acute respiratory failure with hypoxia; E87.2 Acidosis; R65.20 Severe sepsis without septic shock; D86.0 Sarcoidosis of lung; R19.7 Diarrhea, unspecified; E66.01 Morbid (severe) obesity due to excess calories; Z88.0 Allergy status to penicillin; Z88.8 Allergy status to other drugs, medicaments and biological substances; Z90.49 Acquired absence of other specified parts of digestive tract; Z90.710 Acquired absence of both cervix and uterus; Z98.890 Other specified postprocedural states; Z68.35 Body mass index [BMI] 35.0-35.9, adult; Z86.711 Personal history of pulmonary embolism; Z86.718 Personal history of other venous thrombosis and embolism
CPT/HCPCS: 36415; 36430; 71045; 71275; 80048; 80053; 82728; 83605; 84484; 85025; 85379; 86140; 86850; 86900; 86901; 87040; 93005; 96365; 96367; 96375; J0456; J0696; J1100; J1650; J8540; P9017; Q9967